=== PATIENT | female | born 1965 | race Caucasian/White ===

== ENCOUNTER 2016-05-19 10:20 | Emergency (ER) | payer OTHER, MEDICAID ==
[~2016-05-19] VITALS: Ht 162.6 cm; Wt 77.1 kg
[2016-05-19] MEDS ORDERED: diphenhdrAMINE HCL 50 MG/1 ML VL ONE (11:00)
[2016-05-19] MEDS ORDERED: KETOROLAC TROMETH 30 MG/ML 1ML VIAL IM ONE (11:45)
[2016-05-19 13:11] VITALS: BP 129/78
== END 2016-05-19 13:40 | disposition home or self-care (01) ==
LOC: ER 10:20
DX: M25.561 Pain in right knee (principal); M32.9 Systemic lupus erythematosus, unspecified; F17.210 Nicotine dependence, cigarettes, uncomplicated
CPT/HCPCS: 29505; 73562; 93971; 96372; 99284; J1885; 29105

== ENCOUNTER 2018-01-12 17:00 | Emergency (ER) | payer MEDICAID, MEDICARE, OTHER ==
[~2018-01-12] VITALS: Ht 162.6 cm; Wt 70.3 kg
[2018-01-12 17:23] VITALS: BP 157/88
[2018-01-12] MEDS ORDERED: MEPERIDINE HCL (50 MG/ML) 1 ML VIAL IM ONE (19:45)
[2018-01-12] MEDS ORDERED: ONDANSETRON HCL 4 MG/2 ML VIAL IM ONE (19:45)
[2018-01-12] MEDS ORDERED: cefTRIAXone SOD 1,000 MG VL IM ONE (20:00)
[2018-01-12] MEDS ORDERED: LACTULOSE 20Gm/30ML SOLN PO ONE (20:00)
== END 2018-01-12 20:40 | disposition home or self-care (01) ==
LOC: ER 17:13
DX: M54.32 Sciatica, left side (principal); N39.0 Urinary tract infection, site not specified; K59.00 Constipation, unspecified; F17.210 Nicotine dependence, cigarettes, uncomplicated; Z90.710 Acquired absence of both cervix and uterus
CPT/HCPCS: 74018; 96372; 99284; J0696; J2175; J2405

== ENCOUNTER 2018-02-26 09:56 | Emergency (ER) | payer OTHER ==
[~2018-02-26] VITALS: Ht 162.6 cm; Wt 70.3 kg
[2018-02-26 10:08] VITALS: BP 157/90
== END 2018-02-26 11:01 | disposition left against medical advice (07) ==
LOC: ER 09:56
DX: M79.604 Pain in right leg (principal); M79.605 Pain in left leg; F17.210 Nicotine dependence, cigarettes, uncomplicated; E07.89 Other specified disorders of thyroid; Z90.710 Acquired absence of both cervix and uterus; Z53.29 Procedure and treatment not carried out because of patient's decision for other reasons